=== PATIENT | male | born 1965 | race Caucasian/White ===

== ENCOUNTER 2017-01-06 16:07 | Emergency (ER) | payer OTHER ==
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
[2017-01-06 18:01] VITALS: BP 130/87
--- NOTE | 2017-01-08 08:03 | CR ---
Left forearm: Two views of the left forearm were obtained. Comparison: No previous study. Old distal radial and ulnar fractures are noted. Plate and screws are identified within the distal radius crossing into the carpal bones. Nothing acute is appreciated. Impression: 1. Old fractures as well as previous surgery. 2. Nothing acute is identified on two-view left forearm study. Diagnostic code #2
== END 2017-01-06 17:45 | disposition home or self-care (01) ==
LOC: JD.ED 16:07
DX: S50.12XA Contusion of left forearm, initial encounter (principal); I10 Essential (primary) hypertension; J45.909 Unspecified asthma, uncomplicated; Z79.899 Other long term (current) drug therapy; X58.XXXA Exposure to other specified factors, initial encounter
CPT/HCPCS: 73090-26-LT; 73090-LT; 93005; 99283; 99283-25

== ENCOUNTER 2017-01-20 09:28 | Emergency (ER) | payer OTHER ==
[2017-01-20 09:39] VITALS: BP 139/94
--- NOTE | 2017-01-20 12:01 | EDM.PDOC ---
ED HPI GENERAL MEDICAL PROBLEM - General Chief Complaint: ENT Problem Stated Complaint: SOMETHING IS STUCK IN THROAT Time Seen by Provider: 01/20/17 09:58 Source of Information: Reports: Patient, RN Notes Reviewed History Limitations: Reports: No Limitations - History of Present Illness INITIAL COMMENTS - FREE TEXT/NARRATIVE: The patient states that he feels like there is something stuck in his throat for the past 3 days. The sensation began after he ate some steak that had been cooking in a crockpot, and he is concerned that a steak bone may have been softened sufficiently that he did not notice it while chewing. He does not have difficulty swallowing or breathing. No prior similar symptoms. The patient's PCP is Dr. Diaz, who has not been made aware of the situation. Throat Pain Score (Numeric/FACES): 2 - Related Data Allergies Allergy/AdvReac Type Severity Reaction Status Date / Time No Known Allergies Allergy Verified 01/06/17 16:21 Home Meds: Home Meds Albuterol [Ventolin HFA] 1 - 2 puff INH DAILY PRN 01/06/17 [History] Budesonide/Formoterol Fumarate [Symbicort 80-4.5 Mcg Inhaler] 1 - 2 puff INH BID 01/06/17 [History] Tiotropium [Spiriva HandiHaler] 1 - 2 puff INH DAILY 01/06/17 [History] Valsartan 80 mg PO DAILY 01/06/17 [History] Past Medical History Cardiovascular History: Reports: Hypertension Respiratory History: Reports: COPD Musculoskeletal History: Reports: Back Pain, Chronic Neurological History: Reports: Head Trauma (TBI) - Past Surgical History HEENT Surgical History: Reports: Adenoidectomy, Tonsillectomy Respiratory Surgical History: Reports: Tracheostomy GI Surgical History: Reports: Hernia, Inguinal (right) Musculoskeletal Surgical History: Reports: Amputation (LEft 5th toe), ORIF ( Right leg. Left wrist.), Other (See Below) (Left Achilles tendon lengthening) Social & Family History - Tobacco Use Smoking Status *Q: Former Smoker Years of Tobacco use: 20 Packs/Tins Daily: 1 Used Tobacco, but Quit: Yes Month Tobacco Last Used: Quit 2008 - Caffeine Use Caffeine Use: Reports: Soda - Alcohol Use Alcohol Use History: Yes Alcohol Use Frequency: Socially - Recreational Drug Use Recreational Drug Use: No - Living Situation & Occupation Living situation: Reports: , Alone Occupation: Employed ([employer]) ED ROS ENT - Review of Systems Review Of Systems: See Below Constitutional: Reports: No Symptoms HEENT: Reports: No Symptoms Respiratory: Reports: No Symptoms Endocrine: Reports: No Symptoms GI/Abdominal: Reports: No Symptoms : Reports: No Symptoms Musculoskeletal: Reports: No Symptoms Skin: Reports: No Symptoms Neurological: Reports: No Symptoms Psychiatric: Reports: No Symptoms Hematologic/Lymphatic: Reports: No Symptoms Immunologic: Reports: No Symptoms ED EXAM, ENT - Physical Exam Exam: See Below Exam Limited By: No Limitations General Appearance: Alert, WD/WN, No Apparent Distress Mouth/Throat: Normal Inspection, Normal Gums, Normal Lips, Normal Oropharynx, Normal Teeth Neck: Normal Inspection, Supple, Non-Tender, Full Range of Motion Course - Vital Signs Last Recorded V/S: Last Vital Signs Temp 35.9 C 01/20/17 09:38 Pulse 88 01/20/17 09:38 Resp 20 01/20/17 09:38 BP 139/94 H 01/20/17 09:38 Pulse Ox 98 01/20/17 09:38 - Orders/Labs/Meds Orders: Active Orders 24 hr Category Date Time Status Neck Soft Tissue [CR] Stat Exams 01/20/17 10:06 Taken Soft Tissue Neck w Cont [CT] Stat Exams 01/20/17 12:01 Taken Meds: Medications Discontinued Medications Generic Name Dose Route Start Last Admin Trade Name Freq PRN Reason Stop Dose Admin Sodium Chloride 1,000 mls @ 150 mls/hr 01/20/17 12:15 01/20/17 12:23 Normal Saline IV 150 mls/hr ASDIRECTED WILLIAM Administration Iopamidol 80 ml 01/20/17 12:11 01/20/17 12:36 Isovue-300 (61%) IVPUSH 01/20/17 12:12 80 ml ONETIME ONE Administration Sodium Chloride 10 ml 01/20/17 12:11 01/20/17 12:36 Saline Flush FLUSH 10 ml ONETIME PRN Administration IV FLUSH - Radiology Interpretation Free Text/Narrative:: 2-view radiographs of the soft tissue of the neck is read by [facility] as "No definite radiopaque foreign body identified. CT evaluation can be more sensitive to characterize. CT of the soft tissue of the neck with IV contrast is read by [facility] as: 1. No evidence for radiopaque foreign body. 2. Proximal tracheal stenosis at the upper thoracic level, uncertain etiology. - Re-Assessments/Exams Free Text/Narrative Re-Assessment/Exam: 01/20/17 13:05 Test results discussed with the patient. Today's workup is unremarkable, and does not explain the cause of the patient's symptoms. It is still possible that he has a foreign body in his throat, however. The next step will be non- emergent endoscopy. I will refer him to Dr. Govea. Departure - Departure Time of Disposition: 13:06 Disposition: Home, Self-Care 01 Condition: Good Clinical Impression: Foreign body sensation in throat - Discharge Information Referrals: Darrell Diaz MD [Primary Care Provider] - Kb Govea MD [Physician] - Forms: ED Department Discharge Additional Instructions: You were seen in the emergency room for the sensation that something has been stuck in your throat for the past 3 days. Workup in the ER included x-rays of the soft tissues of your neck, and a CT scan of the soft tissues of your neck. The entire workup was normal. No foreign body was seen, however, it is still possible that a foreign body is actually present. Follow-up with the surgeon Dr. Govea at the next available appointment. If any other problems, please do not hesitate to return to the ER. - My Orders Last 24 Hours: My Active Orders 01/20/17 10:06 Neck Soft Tissue [CR] Stat 01/20/17 12:01 Soft Tissue Neck w Cont [CT] Stat - Assessment/Plan Last 24 Hours: My Active Orders 01/20/17 10:06 Neck Soft Tissue [CR] Stat 01/20/17 12:01 Soft Tissue Neck w Cont [CT] Stat
[2017-01-20] MEDS ORDERED: Iopamidol 612 MG/ML 100 ML Bottle IVPUSH ONE (12:11)
[2017-01-20] MEDS ORDERED: Sodium Chloride 0.9% 1,000 ML IV SCH (12:15)
[2017-01-20] MEDS: Sodium Chloride 0.9% 10 ML Syringe FLUSH PRN ×2 (12:20→12:36)
--- NOTE | 2017-01-22 14:37 | CT ---
CT neck Technique: Multiple axial sections were obtained from above the external auditory canals inferiorly to the lung apices. Intravenous contrast was utilized. Comparison: Previous soft tissue plain film neck exam performed earlier on the same day. Findings: Slight soft tissue finding is seen within the inferior left maxillary sinus most likely representing a small and incidental retention cyst. Other visualized sinuses are clear. Parotid and submandibular salivary glands are within normal limits. Visualized lung apices are clear. There is apparent narrowing of the trachea at the level of the thoracic inlet. Epiglottis is normal. Prevertebral soft tissues are normal. Scattered degenerative change is seen within the spine. No opaque foreign object is seen. Impression: 1. Mild asymmetric narrowing of the upper trachea at the level of the thoracic inlet possibly due to old fracture or focal tracheomalacia. Finding is otherwise nonspecific. 2. Degenerative change within the spine. 3. No additional abnormality is appreciated on CT study of the neck. Diagnostic code #3 I agree with preliminary report issued by [email or web address] ([facility] preliminary report dictated on 01/20/17, 1:48 PM Central Time)
--- NOTE | 2017-01-22 14:37 | CR ---
Soft tissue neck: Two views of the neck were obtained for soft tissue purposes. Scattered degenerative change is noted within the spine. Old healed bilateral rib fractures are present. Epiglottis appears normal in size. Prevertebral soft tissues are within normal limits. No opaque foreign body is seen. Impression: 1. Scattered degenerative change within the spine. 2. No soft tissue abnormality is appreciated. No opaque foreign object is identified. Diagnostic code #2 I agree with preliminary report issued by [facility] ([facility] preliminary report dictated on 01/20/17, 12:30 PM Central Time)
== END 2017-01-20 13:15 | disposition home or self-care (01) ==
LOC: JD.ED 09:28
DX: R09.89 Other specified symptoms and signs involving the circulatory and respiratory systems (principal); I10 Essential (primary) hypertension; Z79.899 Other long term (current) drug therapy; Z87.891 Personal history of nicotine dependence; J44.9 Chronic obstructive pulmonary disease, unspecified; Z98.890 Other specified postprocedural states
CPT/HCPCS: 70360; 70491; 96360; 99284; J7040; J7050; Q9967; 99283

== ENCOUNTER 2017-02-07 08:56 | Day surgery (SDC) | payer OTHER ==
[~2017-02-07 08:56] MED LIST: Lactated Ringers 1,000 ML IV SCH; Lidocaine 1%/Sod Bicarbonate in NS 8.4% 1 ML Syringe PRN; Sodium Chloride 0.9% 10 ML Syringe FLUSH PRN
[2017-02-07] MEDS ORDERED: Propofol 200 MG/20 ML SDV ONE ×2 (10:27→11:30)
[2017-02-07] MEDS ORDERED: Lidocaine 1% 4 ML ONE (10:27)
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
--- NOTE | 2017-02-07 11:21 | PCM.OPNOTE ---
- General Post-Op/Procedure Note Date of Surgery/Procedure: 02/07/17 Operative Procedure(s): Esophagogastroduodenoscopy with distal esophageal and proximal esophageal biopsies using cold forceps; fundic polypectomy Findings: Multiple small gastric glandular polyps located in the body of the stomach and fundic area of the stomach; with endoscopic esophagitis Pre Op Diagnosis: Dysphagia Post-Op Diagnosis: 1. AV malformation. 2. Multiple antral polyps. 3. Endoscopic esophagitis Anesthesia Technique: MAC, Moderate sedation Primary Surgeon: Kb Govea Pathology: 1. GE junction and proximal esophageal biopsies 2. Fundic gland polypectomy EBL in mLs: 0 Complications: None Condition: Good Free Text/Narrative:: After adequate IV sedation and analgesia was obtained with monitoring the patient was placed on his left side. Through a bite block a lubricated upper endoscope was inserted into the esophagus and advanced under direct vision to the stomach. Additional air was given here followed by passing the scope through the pylorus into the duodenum. the second part of the duodenum was unremarkable. There is a 1 cm vascular lesion in the first part of the duodenum which appeared to be an AV malformation which was not bleeding. There were no ulcers or inflammatory change in the duodenum. The antrum was unremarkable. In the retroflexed view there were several small glandular type polyps all less than 5 mm in size. There are a few smaller similar polyps within the fundic regions. The largest was removed by polypectomy using cold forceps for histologic evaluation. There was no hiatal hernia. There were no inflammatory changes in the stomach. The scope was withdrawn to the GE junction where there was mild erythema. There was no stenosis. 2 biopsies were taken for histologic review. The body of the esophagus was otherwise unremarkable. Random biopsies were taken in the proximal third of the esophagus given his history of dysphagia. Photographs were taken for the patient and for the record. Air was removed as I finished the procedure which he tolerated well.
--- NOTE | 2017-02-07 11:23 | PCM48HPAN ---
Post Anesthesia Note - EVALUATION WITHIN 48HRS OF ANESTHETIC Vital Signs in Normal Range: Yes Patient Participated in Evaluation: Yes Respiratory Function Stable: Yes Airway Patent: Yes Cardiovascular Function Stable: Yes Hydration Status Stable: Yes Pain Control Satisfactory: Yes Nausea and Vomiting Control Satisfactory: Yes Mental Status Recovered: Yes
[2017-02-07 12:43] VITALS: BP 122/80
== END 2017-02-07 12:00 | disposition home or self-care (01) ==
LOC: JD.SDS 08:56
PROVIDERS: ATTEND Surgery
PROC: 0DB68ZX Excision of Stomach, Via Natural or Artificial Opening Endoscopic, Diagnostic (ICD-10-PCS; principal; 2017-02-07)
DX: K20.8 Other esophagitis (principal); R13.10 Dysphagia, unspecified; K31.7 Polyp of stomach and duodenum; Q27.33 Arteriovenous malformation of digestive system vessel; J44.9 Chronic obstructive pulmonary disease, unspecified; I10 Essential (primary) hypertension; I69.354 Hemiplegia and hemiparesis following cerebral infarction affecting left non-dominant side; Z87.891 Personal history of nicotine dependence
CPT/HCPCS: 43239; 88305; J7120; 00740; J2704

== ENCOUNTER 2021-05-11 22:30 | Emergency (ER) | payer OTHER ==
[2021-05-11 23:02] VITALS: BP 166/93; PULSE 115
--- NOTE | 2021-05-11 23:18 | EDM.PDOC ---
ED HPI GENERAL MEDICAL PROBLEM - General Chief Complaint: Respiratory Problem Stated Complaint: COVID + Time Seen by Provider: 05/11/21 22:39 Source of Information: Reports: Patient History Limitations: Reports: No Limitations - History of Present Illness INITIAL COMMENTS - FREE TEXT/NARRATIVE: Mr. Germain is a very pleasant 55-year-old gentleman who now presents to the ED with worsening dyspnea after being diagnosed with COVID-19. He states that he first developed a fever on 05/04/2021, with a T-max of 101 degrees. He then developed a sore throat, dyspnea, and headache Sunday night. He developed generalized body aches on , 05/05/2021. He states that he tested positive for the SARS-CoV-2 virus on 05/08/2021. He then developed a cough productive of a small amount of phlegm on 05/09/2021. He has not had any nausea, vomiting, or diarrhea. He denies having recent chest pain or palpitations. The patient states that he has been taking ibuprofen, although started taking aspirin 81 mg today. He states that he acquired a finger pulse oximeter today, with an SpO2 of 93% at home. Here in the ED tonight, the patient's initial BP is found to be elevated at 166/93, with tachycardia of 115 bpm. He is afebrile, saturating 93% on room air. He appears to be somewhat uncomfortable, but in no acute distress. The patient denies having a recent sore throat, ear pain, nasal or sinus congestion, chest pain, palpitations, nausea, vomiting, constipation, diarrhea, abdominal pain, urinary symptoms, recent weight gain or weight loss, recent bloody bowel movements or black bowel movements, recent joint aches, or rashes. The patient's PCP is Dr. Darrell Diaz. His Urologist is Dr. Toni Hart. He has received 2 COVID vaccinations. - Related Data Allergies Allergy/AdvReac Type Severity Reaction Status Date / Time No Known Allergies Allergy Verified 05/11/21 22:39 Home Meds: Home Meds Tadalafil [Cialis] 20 mg PO ASDIRECTED 05/11/21 [History] Past Medical History Cardiovascular History: Reports: Hypertension Respiratory History: Reports: COPD, Sleep Apnea (nightly CPAP) Neurological History: Reports: Head Trauma (at 9 yrs old -> right hemiparesis, essential tremor) Oncologic (Cancer) History: Reports: Prostate - Infectious Disease History Infectious Disease History: Reports: Novel Coronavirus (dx'd 05/08/2021) - Past Surgical History HEENT Surgical History: Reports: Adenoidectomy, Tonsillectomy Respiratory Surgical History: Reports: Tracheostomy GI Surgical History: Reports: Hernia, Inguinal (right) Musculoskeletal Surgical History: Reports: Amputation (left 5th toe), ORIF (left wrist, leg), Other (See Below) (Left Achilles tendon lengthening) Oncologic Surgical History: Reports: Other (See Below) (Partial prostatectomy for pancreatic cancer) Social & Family History - Tobacco Use Tobacco Use Status *Q: Former Tobacco User Years of Tobacco use: 24 Packs/Tins Daily: 1 Month/Year Tobacco Last Used: Quit 2010 - Caffeine Use Caffeine Use: Reports: Soda - Alcohol Use Alcohol Use History: Yes Alcohol Use Frequency: Socially - Recreational Drug Use Recreational Drug Use: No - Living Situation & Occupation Living situation: Reports: , Alone Occupation: Employed ([employer]) ED ROS GENERAL - Review of Systems Review Of Systems: Comprehensive ROS is negative, except as noted in HPI. ED EXAM, GENERAL - Physical Exam Exam: See Below Exam Limited By: No Limitations General Appearance: Alert, WD/WN, No Apparent Distress Eye Exam: Bilateral Eye: EOMI, Normal Inspection Ears: Normal External Exam, Hearing Grossly Normal Nose: Normal Inspection Throat/Mouth: Normal Inspection, Normal Lips, Normal Voice, No Airway Compromise Head: Atraumatic, Normocephalic Neck: Normal Inspection, Full Range of Motion Respiratory/Chest: No Respiratory Distress, Lungs Clear, Normal Breath Sounds, No Accessory Muscle Use. No: Decreased Breath Sounds, Crackles, Rhonchi, Wheezing, Stridor, Prolonged Expiration Cardiovascular: Normal Peripheral Pulses, No Edema, No Gallop, No JVD, No Murmur, No Rub, Tachycardia (regular) Peripheral Pulses: 3+: Radial (L), Radial (R) GI/Abdominal: Normal Bowel Sounds, Soft, Non-Tender, No Organomegaly, No Dis tention, No Abnormal Bruit, No Mass Back Exam: Normal Inspection, Full Range of Motion, NT Extremities: No Pedal Edema, Normal Capillary Refill, Other (LUE and LLE with muscle wasting) Neurological: Alert, Oriented, Normal Cognition, No Motor/Sensory Deficits, Other (Left hemiparesis) Psychiatric: Normal Affect Skin Exam: Warm, Dry, Intact, Normal Color, No Rash #1 Interpretation EKG Date: 05/11/21 Time: 22:42 Rhythm: Other (Sinus tachycardia) Rate (Beats/Min): 116 [place]: Other (Extreme axis 248 degrees) P-Wave: Present QRS: Other (RVH. ?LAFB) ST-T: Normal QT: Normal Comparison: Change From Previous EKG (RVH, extreme axis, ?LAFB new since 01/06/2017) Course - Vital Signs Last Recorded V/S: Last Vital Signs Temp 36.6 C 05/11/21 23:00 Pulse 115 H 05/11/21 23:00 Resp 19 05/11/21 23:00 BP 166/93 H 05/11/21 23:00 Pulse Ox 93 L 05/11/21 23:00 - Orders/Labs/Meds Orders: Active Orders 24 hr Category Date Time Status Chest 1V Frontal [CR] Stat Exams 05/11/21 23:15 Taken Labs: Laboratory Tests 05/11/21 05/11/21 05/11/21 Range/Units 22:39 22:39 22:39 WBC 6.50 (4.23-9.07) K/mm3 RBC 5.18 (4.63-6.08) M/mm3 Hgb 14.6 (13.7-17.5) gm/dl Hct 43.8 (40.1-51.0) % MCV 84.6 (79.0-92.2) fl MCH 28.2 (25.7-32.2) pg MCHC 33.3 (32.2-35.5) g/dl RDW Std Deviation 38.6 (35.1-43.9) fL Plt Count 184 (163-337) K/mm3 MPV 9.6 (9.4-12.3) fl Neutrophils % (Manual) 57 (40-60) % Band Neutrophils % 9 (0-10) % Lymphocytes % (Manual) 26 (20-40) % Atypical Lymphs % 0 % Monocytes % (Manual) 8 (2-10) % Eosinophils % (Manual) 0 L (0.8-7.0) % Basophils % (Manual) 0 L (0.2-1.2) Platelet Estimate Adequate RBC Morph Comment Normal D-Dimer, Quantitative 1.06 H (0.19-0.50) mg/L Sodium 140 (136-145) mEq/L Potassium 4.3 (3.5-5.1) mEq/L Chloride 104 (98-107) mEq/L Carbon Dioxide 25 (21-32) mEq/L Anion Gap 15.3 H (5-15) BUN 17 (7-18) mg/dL Creatinine 1.1 (0.7-1.3) mg/dL Est Cr Clr Drug Dosing 66.00 mL/min Estimated GFR (MDRD) > 60 (>60) mL/min BUN/Creatinine Ratio 15.5 (14-18) Glucose 118 H (70-99) mg/dL Calcium 8.8 (8.5-10.1) mg/dL Total Bilirubin 0.3 (0.2-1.0) mg/dL AST 62 H (15-37) U/L ALT 97 H (16-63) U/L Alkaline Phosphatase 86 (46-116) U/L C-Reactive Protein 4.5 H* (<1.0) mg/dL Total Protein 7.8 (6.4-8.2) g/dl Albumin 3.5 (3.4-5.0) g/dl Globulin 4.3 gm/dL Albumin/Globulin Ratio 0.8 L (1-2) - Re-Assessments/Exams Free Text/Narrative Re-Assessment/Exam: 05/11/21 23:16 An ECG was obtained at triage, which demonstrates sinus tachycardia but no ischemic changes. I have ordered a work-up and includes several blood tests and a portable chest x-ray. 05/11/21 23:35 Portable chest radiograph appears to be grossly normal. The cardiac silhouette is within normal limits. No pulmonary vascular congestion. No pleural eff usions seen on this AP view. No focal infiltrate. No pneumothorax. Formal read per the Radiologist pending. 05/11/21 23:46 The patient's CBC is unremarkable. His CMP is remarkable for slight hyperglycemia of 118, and an AST/ALT mildly elevated at 62/97, respectively, with the remainder of his CMP being unremarkable. His CRP is elevated at 4.5. His D-dimer is elevated at 1.06. 05/12/21 00:14 Test results discussed with the patient. His relatively low CRP is a good prognostic indicator. While his D-dimer is most likely elevated due to COVID- 19, he is tachycardic, therefore I suggested a CT angiogram of the chest to rule out a PE. He did not want to proceed with that at this time. He would prefer to talk to his PCP about it. He states that he already has a pulse oximeter at home. I recommended that he check his oxygen saturation several times a day, and if his SpO2 drops down to 90% or below, persistently, that he return to the ED for reevaluation. At present, we have a limited supply of monoclonal antibodies, and have been instructed to dispense them judiciously. Given the late stage of the patient's infection and relatively low CRP, I do not feel that the patient is at high risk for developing severe symptoms or as a result of COVID-19, and I am therefore not recommending treatment with monoclonal antibodies. Departure - Departure Time of Disposition: 00:15 Disposition: Home, Self-Care 01 Condition: Good Clinical Impression: COVID-19 - Discharge Information *PRESCRIPTION DRUG MONITORING PROGRAM REVIEWED*: Not Applicable *COPY OF PRESCRIPTION DRUG MONITORING REPORT IN PATIENT KULWINDER: Not Applicable Instructions: COVID-19 Referrals: Darrell Diaz MD [Primary Care Provider] - Toni Hart MD [Ordering Only Provider] - Forms: ED Department Discharge Additional Instructions: You were seen in the emergency room for worsening shortness of breath in the setting of being diagnosed with COVID-19. Work-up in the ER included several blood tests, a chest x-ray, and an ECG. Your CRP, a marker of inflammation, is modestly elevated at 4.5. That is a good prognostic indicator. Your D-dimer, a measure of (possible) blood clot, is elevated at 1.06. A CT angiogram of your chest to evaluate for pulmonary embolus was offered, but declined. We recommend that you stay adequately hydrated and take [id number] ibuprofen as needed for discomfort. We recommend that you check your oxygen saturation several times a day. If it drops down to 90% or below persistently, please return to the ER for reevaluation. Sepsis Event Note (ED) - Evaluation Sepsis Screening Result: No Definite Risk - Focused Exam Vital Signs: Vital Signs Temp Pulse Resp BP Pulse Ox 05/11/21 23:00 36.6 C 115 H 19 166/93 H 93 L - My Orders Last 24 Hours: My Active Orders 05/11/21 23:15 Chest 1V Frontal [CR] Stat - Assessment/Plan Last 24 Hours: My Active Orders 05/11/21 23:15 Chest 1V Frontal [CR] Stat
--- NOTE | 2021-05-12 06:26 | CR ---
Chest: Portable view of the chest was obtained. Comparison: No prior chest imaging is available. Heart size and mediastinum are normal. Lungs are clear with no acute parenchymal change. Old healed bilateral upper rib fractures are noted. No acute osseous abnormality is appreciated. Impression: 1. Nothing acute is seen on portable chest x-ray. Diagnostic code #2
== END 2021-05-12 00:35 | disposition home or self-care (01) ==
LOC: JD.ED 22:30
DX: U07.1 COVID-19 (principal); I10 Essential (primary) hypertension; J44.9 Chronic obstructive pulmonary disease, unspecified; R79.89 Other specified abnormal findings of blood chemistry; Z87.891 Personal history of nicotine dependence
CPT/HCPCS: 36415; 71045; 71045-26; 80053; 85007; 85027; 85379; 86140; 93005; 99285-25